=== PATIENT | male | born 1975 | race Caucasian/White ===

== ENCOUNTER 2023-08-12 14:55 | Inpatient (IN) | payer OTHER ==
[~2023-08-12] VITALS: Ht 180.3 cm; Wt 87.0 kg
[2023-08-12 15:15] VITALS: PULSE 160; RESP 16; O2SAT 98
[2023-08-12] MEDS: LORazepam 2 MG/ML VIAL IM ONE (15:17)
[2023-08-12 15:43] LABS: ABG BASE EXCESS -20.5 mmol/L (-2.0-3.0); ABG OXYGEN CONTENT 23.4 mL/dL (15.0-23.0); ABG OXYGEN SATURATION 99.7 % (95.0-98.0); ABG OXYHEMOGLOBIN 97.7 % (94.0-100.0); ABG PCO2 60 mmHg (35-45); ABG TOTAL HEMOGLOBIN 16.1 G/dL (12.0-18.0); PO2, ARTERIAL BG 498.8 mmHg (88.0-96.0); SOURCE, BLOOD GAS ARTERIAL; TEMPERATURE, FAHRENHEIT, BG 99.1 FAHREN (96.0-98.6)
[2023-08-12] MEDS ORDERED: LABETALOL HCL 5 MG/ML 20 ML VIAL IVP ONE ×2 (15:45→15:47)
[2023-08-12 15:46] LABS: ABG HCO3 9.8 mmol/L (22.0-26.0); ABG PH 6.923 (7.35-7.450); ALLEN TEST, BLOOD GAS Positive; O2 DEVICE,BLOOD GAS VENTILATOR (ROOM AIR); PEEP,BG 5 cm H2O; SITE, BLOOD GAS LFT RADIAL; VT, ABG 450 ml
[2023-08-12 15:55] LABS: BASOPHILS % (AUTO) 1.2 % (0.0-2.0); EOSINOPHILS % (AUTO) 1.9 % (1.0-6.0); HEMATOCRIT 47.4 % (41-53); HEMOGLOBIN 15.2 g/dL (13.5-17.5); LYMPHOCYTES # (AUTO) 10.7 K/uL (1.0-4.8); LYMPHOCYTES % (AUTO) 52.5 % (22.0-44.0); MEAN CORPUSCULAR HEMOGLOBIN 29.6 pg (26.0-34.0); MEAN CORPUSCULAR HGB CONC 32.1 G/dL (31.0-37.0); MEAN CORPUSCULAR VOLUME 93 fL (80-100); MONOCYTES # (AUTO) 1.5 K/uL (0.1-1.0); MONOCYTES % (AUTO) 7.2 % (2.0-9.0); NEUTROPHILS # (AUTO) 7.6 K/uL (1.8-7.7); NEUTROPHILS % (AUTO) 37.2 % (40.0-70.0); PLATELET COUNT (AUTO) 268 K/uL (150-450); RED BLOOD CELL COUNT(AUTO) 5.13 MIL/uL (4.50-5.90); RED CELL DISTRIBUTION WIDTH 14.8 % (11.5-14.5); WHITE BLOOD COUNT (AUTO) 20.3 K/uL (4.5-11.0)
[2023-08-12 15:56] LABS: ANION GAP 23 mmol/L (8-16); CALCIUM, TOTAL 9.5 mg/dL (8.8-10.5); CARBON DIOXIDE 17 mmol/L (22-29); CHLORIDE 102 mmol/L (98-107); CREATININE 1.79 mg/dL (0.60-1.30); GLOMERULAR FILTR. RATE CALC 41 mL/min (>60); GLUCOSE,RANDOM 213 mg/dL (70-110); POTASSIUM 3.2 mmol/L (3.5-5.1); SODIUM SERUM 142 mmol/L (136-145); UREA NITROGEN, BLOOD 17 mg/dL (7-18)
[2023-08-12 15:58] LABS: PROTHROMBIN TIME 10.5 SEC (9.4-11.6)
[2023-08-12 16:03] LABS: TROPONIN I-HIGH SENSITIVITY 14 ng/L (<76)
[2023-08-12 16:07] LABS: AMMONIA 169 umol/L (11-32)
[2023-08-12] MEDS: SODIUM CHLORIDE 0.9% 1,000 ML IV ONE (16:10)
[2023-08-12] MEDS: PROPOFOL 1000 MG/ISO-OSM 100 ML IV PRN (16:10)
[2023-08-12 16:15] LABS: COVID AG,FIA SOURCE NASAL SWAB
[2023-08-12] MEDS: LABETALOL HCL 5 MG/ML 20 ML VIAL IVP ONE (16:15)
[2023-08-12 16:21] LABS: ALANINE AMINOTRANSFERASE 191 U/L (12-78); ALBUMIN 4.2 g/dL (3.4-5.0); ALKALINE PHOSPHATASE 99 U/L (46-116); ASPARTATE AMINOTRANSFERASE 174 U/L (15-37); BILIRUBIN,TOTAL 0.3 mg/dL (0.1-1.0); CREATINE KINASE, TOTAL ONLY 181 U/L (39-308); TOTAL PROTEIN, SERUM 8.3 g/dL (6.4-8.2)
[2023-08-12 16:33] LABS: LACTIC ACID 14.9 mmol/L (0.4-2.0)
[2023-08-12 16:35] LABS: SARS-COV2 (COVID) ANTIGEN,FIA Negative (Negative)
[2023-08-12] MEDS: PIPERACILLIN/TAZO 3.375 GM/D5W 50 ML IV ONE (16:42)
[2023-08-12 16:45] LABS: APPEARANCE,URINE CLEAR (CLEAR); BILIRUBIN,URINE NEGATIVE (NEGATIVE); COLOR,URINE LIGHT YELLOW (YELLOW); GLUCOSE, URINE (UA) NEGATIVE (NEGATIVE); KETONES,URINE NEGATIVE (NEGATIVE); LEUKOCYTE ESTERASE ,URINE NEGATIVE (NEGATIVE); NITRATE,URINE NEGATIVE (NEGATIVE); OCCULT BLOOD,URINE LARGE (NEGATIVE); PH,URINE 5.5 (5.0-8.0); PH,URINE DRUG SCREEN 5.5 (5.0-8.0); PROTEIN,URINE 100-200,SEE CONFIRM mg/dL (NEGATIVE); SPECIFIC GRAVITIY, URINE 1.014 (1.003-1.030); UROBILINOGEN,URINE <=1.0 mg/dL (<=1.0)
[2023-08-12 16:46] LABS: ALCOHOL, URINE DRUG SCREEN NEGATIVE (NEGATIVE); AMPHET/METH SCREEN,URINE NEGATIVE (NEGATIVE); BARBITURATE SCREEN, URINE NEGATIVE (NEGATIVE); BENZODIAZEPINES SCREEN,URINE NEGATIVE (NEGATIVE); CANNABINOID SCREEN,URINE NEGATIVE (NEGATIVE); COCAINE SCREEN,URINE NEGATIVE (NEGATIVE); METHADONE SCREEN, URINE NEGATIVE (NEGATIVE); OPIATE SCREEN,URINE NEGATIVE (NEGATIVE); PHENCYCLIDINE SCREEN,URINE NEGATIVE (NEGATIVE)
[2023-08-12 17:01] LABS: SULFOSALICYLIC ACID,URINE 4+ (Negative)
[2023-08-12 17:03] LABS: BACTERIA,URINE None Seen /HPF (None Seen); WBC,URINE None Seen /HPF (0-5)
[2023-08-12] MEDS: SODIUM CHLORIDE 0.9% 2,850 ML IV ONE (17:28)
[2023-08-12] MEDS ORDERED: ONDANSETRON HCL 4 MG/2 ML VIAL IVP PRN (18:00)
[2023-08-12] MEDS ORDERED: ACETAMINOPHEN 325 MG TABLET PO PRN (18:00)
[2023-08-12] MEDS ORDERED: HYDROCODONE/ACETAMINOPHEN 5-325 MG TABLET PO PRN (18:00)
[2023-08-12] MEDS ORDERED: BISACODYL 10 MG RECTAL RECTAL SUPPOSITORY PR PRN (18:00)
[2023-08-12] MEDS ORDERED: ZOLPIDEM TARTRATE 5 MG TABLET PO PRN (18:00)
[2023-08-12] MEDS ORDERED: MAGNESIUM HYDROXIDE SUSPENSION 30 ML UDCUP PO PRN (18:00)
[2023-08-12] MEDS: PANTOPRAZOLE SODIUM 80 MG in SODIUM CHLORIDE 0.9% 100 ML IV SCH (18:45)
[2023-08-12] MEDS: LACTULOSE 20 GM/30 ML SOLUTION UDCUP NG ONE (19:06)
[2023-08-12 19:21] VITALS: PULSE 69; RESP 20; O2SAT 99
[2023-08-12 20:24] LABS: ABG CARBOXYHEMOGLOBIN 0.3 % (0.0-1.5); ABG OXYGEN CONTENT 18.8 mL/dL (15.0-23.0); ABG TOTAL HEMOGLOBIN 12.7 G/dL (12.0-18.0); SOURCE, BLOOD GAS ARTERIAL; TEMPERATURE, FAHRENHEIT, BG 97.1 FAHREN (96.0-98.6)
[2023-08-12 20:25] LABS: ABG BASE EXCESS -6.1 mmol/L (-2.0-3.0); ABG HCO3 20.1 mmol/L (22.0-26.0); ABG METHEMOGLOBIN 0.1 % (0.0-1.5); ABG OXYGEN SATURATION 99.6 % (95.0-98.0); ABG OXYHEMOGLOBIN 99.2 % (94.0-100.0); ABG PCO2 34 mmHg (35-45); PO2, ARTERIAL BG 390.6 mmHg (88.0-96.0)
[2023-08-12 20:28] LABS: ALLEN TEST, BLOOD GAS Positive; O2 DEVICE,BLOOD GAS VENTILATOR (ROOM AIR); PEEP,BG 5 cm H2O; SITE, BLOOD GAS LFT RADIAL; SPONTANEOUS VT, BG 471 ml
[2023-08-12 20:29] LABS: VT, ABG 450 ml
[2023-08-12 21:00] VITALS: BP 93/55; PULSE 80; RESP 20; TEMP 97.5
[2023-08-12] MEDS: LACTULOSE 200 GM/300 ML RECTAL SOLUTION PR SCH (21:00)
[2023-08-12] MEDS ORDERED: DOCUSATE SODIUM 100 MG CAPSULE PO SCH (21:00)
[2023-08-12] MEDS: SODIUM CHLORIDE 0.9% 1,000 ML IV SCH (21:40)
[2023-08-12 22:02] VITALS: PULSE 68; RESP 20; O2SAT 100
[2023-08-12] MEDS: PIPERACILLIN/TAZO 3.375 GM/D5W 50 ML IV SCH (22:19)
[2023-08-13] VITALS (14 sets, daily range): BP systolic 82–127; BP diastolic 50–91; PULSE 50–73; RESP 14–20; TEMP 96.6–98.7; O2SAT 99–100
[2023-08-13 05:54] LABS: BASOPHILS % (AUTO) 0.5 % (0.0-2.0); EOSINOPHILS % (AUTO) 1.8 % (1.0-6.0); HEMATOCRIT 33.7 % (41-53); HEMOGLOBIN 11.7 g/dL (13.5-17.5); LYMPHOCYTES # (AUTO) 2.4 K/uL (1.0-4.8); LYMPHOCYTES % (AUTO) 26.9 % (22.0-44.0); MEAN CORPUSCULAR HEMOGLOBIN 30.7 pg (26.0-34.0); MEAN CORPUSCULAR HGB CONC 34.6 G/dL (31.0-37.0); MEAN CORPUSCULAR VOLUME 89 fL (80-100); MONOCYTES % (AUTO) 11.2 % (2.0-9.0); NEUTROPHILS # (AUTO) 5.4 K/uL (1.8-7.7); NEUTROPHILS % (AUTO) 59.6 % (40.0-70.0); PLATELET COUNT (AUTO) 152 K/uL (150-450); RED CELL DISTRIBUTION WIDTH 14.5 % (11.5-14.5)
[2023-08-13 05:57] LABS: CALCIUM, TOTAL 8.1 mg/dL (8.8-10.5); CREATININE 1.98 mg/dL (0.60-1.30); POTASSIUM 3.5 mmol/L (3.5-5.1)
[2023-08-13] MEDS: DOCUSATE SODIUM 100 MG/10 ML LIQUID UDCUP NG SCH (08:48)
[2023-08-13] MEDS: PROPOFOL 1000 MG/ISO-OSM 100 ML IV PRN (08:55)
[2023-08-13] MEDS ORDERED: PANTOPRAZOLE SODIUM 40 MG DR TABLET PO SCH (09:00)
[2023-08-13 09:01] LABS: TROPONIN I-HIGH SENSITIVITY 281 ng/L (<76)
[2023-08-13] MEDS: DEXMEDETOMIDINE HCL 400 MCG in SODIUM CHLORIDE 0.9% 96 ML IV PRN (09:37)
[2023-08-13 13:46] LABS: ABG BASE EXCESS -8.4 mmol/L (-2.0-3.0); ABG HCO3 18.3 mmol/L (22.0-26.0); ABG METHEMOGLOBIN 0.1 % (0.0-1.5); ABG OXYGEN CONTENT 18.1 mL/dL (15.0-23.0); ABG OXYGEN SATURATION 98.5 % (95.0-98.0); ABG OXYHEMOGLOBIN 98.4 % (94.0-100.0); ABG PCO2 37 mmHg (35-45); ABG PH 7.304 (7.35-7.450); ABG TOTAL HEMOGLOBIN 12.9 G/dL (12.0-18.0); SOURCE, BLOOD GAS ARTERIAL; TEMPERATURE, FAHRENHEIT, BG 97.8 FAHREN (96.0-98.6)
[2023-08-13 13:47] LABS: ALLEN TEST, BLOOD GAS POS; O2 DEVICE,BLOOD GAS VENTILATOR (ROOM AIR); PEEP,BG 0 cm H2O; PRESSURE SUPPORT, BG 8 cm H2O; SITE, BLOOD GAS RT BRACHIAL; SPONTANEOUS VT, BG 450 ml; VENT MODE, BG CPAP (ROOM AIR)
[2023-08-13] MEDS: MORPHINE SULFATE 2 MG/ML SYRINGE IVP PRN (14:18)
[2023-08-13] MEDS ORDERED: SODIUM CHLORIDE 0.9% 250 ML IV ONE (15:29)
[2023-08-14] VITALS (7 sets, daily range): BP systolic 82–146; BP diastolic 64–87; PULSE 73–84; RESP 15–24; TEMP 98.1–99
[2023-08-14 06:13] LABS: BASOPHILS % (AUTO) 0.6 % (0.0-2.0); EOSINOPHILS % (AUTO) 2.3 % (1.0-6.0); HEMATOCRIT 39.4 % (41-53); HEMOGLOBIN 13.1 g/dL (13.5-17.5); LYMPHOCYTES # (AUTO) 2.5 K/uL (1.0-4.8); LYMPHOCYTES % (AUTO) 26.3 % (22.0-44.0); MEAN CORPUSCULAR HEMOGLOBIN 30.2 pg (26.0-34.0); MEAN CORPUSCULAR HGB CONC 33.2 G/dL (31.0-37.0); MEAN CORPUSCULAR VOLUME 91 fL (80-100); MONOCYTES # (AUTO) 0.8 K/uL (0.1-1.0); MONOCYTES % (AUTO) 8.2 % (2.0-9.0); NEUTROPHILS % (AUTO) 62.6 % (40.0-70.0); PLATELET COUNT (AUTO) 148 K/uL (150-450); RED BLOOD CELL COUNT(AUTO) 4.33 MIL/uL (4.50-5.90); RED CELL DISTRIBUTION WIDTH 14.3 % (11.5-14.5); WHITE BLOOD COUNT (AUTO) 9.6 K/uL (4.5-11.0)
[2023-08-14 06:19] LABS: CALCIUM, TOTAL 8.8 mg/dL (8.8-10.5); CREATININE 1.71 mg/dL (0.60-1.30); POTASSIUM 3.5 mmol/L (3.5-5.1)
[2023-08-14 06:22] LABS: TROPONIN I-HIGH SENSITIVITY 96 ng/L (<76)
[2023-08-14] MEDS: RINGERS SOLUTION,LACTATED 1,000 ML IV SCH (09:50)
[2023-08-14] MEDS ORDERED: DENTURE ADHESIVE 68 GM CREAM DT PRN (17:00)
[2023-08-14] MEDS ORDERED: SODIUM CHLORIDE 0.9% 1,000 ML ONE (22:58)
[2023-08-15 00:57] VITALS: BP 144/76; PULSE 80; RESP 19; TEMP 97.9
[2023-08-15 03:45] VITALS: BP 136/82; PULSE 62; RESP 19; TEMP 98.2
[2023-08-15 05:59] LABS: BASOPHILS % (AUTO) 0.9 % (0.0-2.0); EOSINOPHILS % (AUTO) 2.9 % (1.0-6.0); HEMATOCRIT 36.3 % (41-53); HEMOGLOBIN 12.7 g/dL (13.5-17.5); LYMPHOCYTES # (AUTO) 2.4 K/uL (1.0-4.8); LYMPHOCYTES % (AUTO) 31.1 % (22.0-44.0); MEAN CORPUSCULAR HEMOGLOBIN 30.4 pg (26.0-34.0); MEAN CORPUSCULAR HGB CONC 34.9 G/dL (31.0-37.0); MEAN CORPUSCULAR VOLUME 87 fL (80-100); MONOCYTES # (AUTO) 0.7 K/uL (0.1-1.0); MONOCYTES % (AUTO) 8.6 % (2.0-9.0); NEUTROPHILS # (AUTO) 4.4 K/uL (1.8-7.7); NEUTROPHILS % (AUTO) 56.5 % (40.0-70.0); PLATELET COUNT (AUTO) 192 K/uL (150-450); RED BLOOD CELL COUNT(AUTO) 4.17 MIL/uL (4.50-5.90); RED CELL DISTRIBUTION WIDTH 14.2 % (11.5-14.5); WHITE BLOOD COUNT (AUTO) 7.7 K/uL (4.5-11.0)
[2023-08-15 06:08] LABS: CALCIUM, TOTAL 8.8 mg/dL (8.8-10.5); CREATININE 1.36 mg/dL (0.60-1.30)
[2023-08-15 07:27] LABS: POTASSIUM 2.9 mmol/L (3.5-5.1)
[2023-08-15 08:05] VITALS: BP 140/79; PULSE 61; RESP 18; TEMP 97.4
[2023-08-15] MEDS: POTASSIUM CHLORIDE 20 MEQ ER TABLET PO ONE (08:34)
[2023-08-15] MEDS ORDERED: AMOX1TAB15 PO (10:19)
[2023-08-15] MEDS ORDERED: OMEP20 PO (10:19)
[2023-08-15 11:40] VITALS: BP 129/73; PULSE 67; RESP 18; TEMP 97.3
== END 2023-08-15 12:15 | disposition home or self-care (01) | DRG 917 ==
LOC: EMS 15:00 → ICUN 16:03 → ICU 18:30 → 5N 08-14 21:30
PROVIDERS: ADMIT Internal Medicine; ATTEND Internal Medicine
PROC: 5A1935Z Respiratory Ventilation, Less than 24 Consecutive Hours (ICD-10-PCS; principal; 2023-08-12)
PROC: 0BH17EZ Insertion of Endotracheal Airway into Trachea, Via Natural or Artificial Opening (ICD-10-PCS; 2023-08-12)
DX: T43.651A Poisoning by methamphetamines accidental (unintentional), initial encounter (principal); G92.9 Unspecified toxic encephalopathy; J69.0 Pneumonitis due to inhalation of food and vomit; J96.01 Acute respiratory failure with hypoxia; N17.0 Acute kidney failure with tubular necrosis; J96.02 Acute respiratory failure with hypercapnia; E87.20 Acidosis, unspecified; E72.20 Disorder of urea cycle metabolism, unspecified; K92.2 Gastrointestinal hemorrhage, unspecified; Z20.822 Contact with and (suspected) exposure to COVID-19; E87.6 Hypokalemia; D69.6 Thrombocytopenia, unspecified; E87.8 Other disorders of electrolyte and fluid balance, not elsewhere classified; I10 Essential (primary) hypertension; F11.10 Opioid abuse, uncomplicated; Y92.89 Other specified places as the place of occurrence of the external cause; Z93.3 Colostomy status; Z79.899 Other long term (current) drug therapy; Z90.49 Acquired absence of other specified parts of digestive tract; Z93.2 Ileostomy status
CPT/HCPCS: 36600; 51702; 70450; 71045; 74176; 76770; 80048; 80053; 80307; 81001; 81002; 82140; 82271; 82550; 82805; 83605; 84484; 85025; 85610; 85730; 87040; 87070; 87081; 87205; 93005; 93306; 94002; 94003; 99291; C9113; J2060; J2270; J2543; J2704; J3490; J7030; J7050; J7120; Q9967; 36415-L1; 36415-TC; 82803-TC